=== PATIENT | female | born 1990 | race Caucasian/White ===

== ENCOUNTER 2018-10-24 08:48 | Inpatient (IN) | payer MEDICAID ==
[2018-10-24 09:39] VITALS: BMI 31.7
[2018-10-24] MEDS: Lactated Ringer's 1,000 ML IV ONE ×2 (10:15→11:15)
[2018-10-24 10:58] LABS: BASO % 0.5 % (0.0-2.0); EOS # 0.1 K/uL (0.0-0.7); EOS % 1.8 % (0.0-4.0); HEMOGLOBIN 11.5 g/dL (12.0-16.0); LYMPH # 2.1 K/uL (1.0-4.3); LYMPH % 27.2 % (20.0-40.0); MEAN CELL VOLUME 90.1 fl (81.0-99.0); MEAN CORPUSCULAR HEMOGLOBIN 29.2 pg (27.0-31.0); MEAN CORPUSCULAR HGB CONC 32.4 g/dL (33.0-37.0); MEAN PLATELET VOLUME 12.1 fl (7.2-11.7); MONO # 0.5 K/uL (0.0-0.8); MONO % 6.8 % (0.0-10.0); NEUT # 4.8 K/uL (1.8-7.0); NEUT % 63.7 % (50.0-75.0); NRBC % 0.3 % (0.0-0.0); RBC 3.92 Mil/uL (3.80-5.20); WHITE BLOOD COUNT 7.6 K/uL (4.8-10.8)
[2018-10-24 11:09] VITALS: O2SAT 100
[2018-10-24] MEDS ORDERED: Bupivacaine HCl 0.5% PF (30 ml) Inj ONE (11:36)
[2018-10-24] MEDS ORDERED: Fentanyl/Bupivacaine HCl 250 ML EPI ONE (12:04)
[2018-10-24] MEDS ORDERED: Lactated Ringer's 1,000 ML IV ONE ×2 (12:50→12:51)
--- NOTE | 2018-10-24 13:15 | OBADHP ---
Datetime: 10/24/2018 09:44 Admit Comment, IP Provider: 28 y/o @ 39.6 wks w/REYES of 10/25/2018 LMP: 01/18/2018 is present ing with complaints of contraction that began at 5am this morning and has been occurring every 15 min utes. She reports some mucus-like discharge, + FM, but denies any vb or srom. Denied f/c/n/v/dysuria, chest pain or shortness of breath. OBGYNhx: x 2; 1 5 years ago, 40wks PMH: iron deficiency anemia Meds: Ferrous sulfate 325mg BID, pnv Allergies: denies Surghx: denies Sochx: denies etOH, cigarette or elicit drug use Famhx: maternal grandfather- lung cancer maternal grandmother- gastric tumor maternal aunt-breast cancer ROS: all points reviewed and neg unless otherwise mentioned in HPI VS: 110/65, spo2-99%, P-88bpm, RR-16 Cardiac: s1 s2 no murmurs Lungs: cta b/l Abd: gravid, soft, nontender, no rigidity or guaring Pelvic: 2-3cm, 50%, -2 Ext: calves nontender A/P:28 y/o @ 39.6 wks w/REYES of 10/25/2018 c/o of contractions since 5am today. -Admit to unit for continued FHR monitoring. -Initiate labor protocol. Patient seen and evaluated with Dr. Gisella Delaney, PGY-1, FM Addendum: I saw and examined patient at presentation. Plan to admit patient for early labor. FHT category I. Pt requesting epidural, will contact anesthesia. Discussed plan with patient and all patient que stions answered. Gisella Gestation - Est Wks by US: 39.6 IP Hx Assessment: The History has been Reviewed and is Current Vital Signs Provider: Reviewed; Within Normal Limits IP Chief Complaint: Uterine contractions EGA AdmitDate IP: 39.6 IP Adm Impression: Term, intrauterine IP Admit Plan: Admit to unit; Initiate labor protocol; Observation/Evaluation
[2018-10-24] MEDS ORDERED: Oxytocin 30 UNIT 30 UNITS/500 ML BAG IV ONE ×2 (15:08)
[2018-10-24] MEDS ORDERED: OXYTOCIN/0.9 % NS 20 UNIT/1,000 ML BAG IV ONE (15:08)
[2018-10-24] MEDS ORDERED: Lidocaine 1% Inj (20ml) ONE (20:32)
[2018-10-24] MEDS ORDERED: Benzocaine/Menthol SPRAY TOP PRN ×2 (22:11→22:15)
[2018-10-24] MEDS ORDERED: Oxycodone/Acetaminophen 5/325 mg Tab PO PRN ×2 (22:11→22:15)
--- NOTE | 2018-10-24 23:53 | OBPN ---
Datetime: 10/24/2018 15:06 IP Procedures: Sterile Vag Exam IP Progress Plan: Augmentation Contraction Comments Provider: q3-5min FHR - Baseline A Provider: 120s-130s IP Progress Note Comment: Pt comfortable s/p epidural. No cervical change, plan to start pitocin augmentation. FHT category I Discussed plan with patient and all patient questions answered. Vital Signs Provider: Reviewed; Within Normal Limits NICHD Accel Fetus A IP Provider: [id number] FHR Category Provider Fetus A: Category I NICHD Variability Prov Fetus A: Moderate 6-25bpm Dilatation, Provider: 3 Effacement, Provider: 50 Station, Provider: -2 NICHD Decel Fetus A IP Provider: None Datetime: 10/24/2018 09:44 Gestation - Est Wks by US: 39.6
--- NOTE | 2018-10-24 23:58 | OBDS ---
DELIVERY PERSONNEL Delivery Doctor: Vera Obando MD Supervisor Electronics Testing: Mary Ordoñez RN Anesthetist: Nyla MATERNAL INFORMATION Delivery Anesthesia: Local; Epidural Medications in Delivery: Pitocin Estimated Blood Loss (ml): 200 Placenta Cultured: Yes Maternal Complications: None Provider Comments: . Pt delivered viable male with Apgars of 3,5 and 7 at 1 and 5 and 10 minutes respectively. initially with good color and strong cry, but then color and breathing worsened. Pediatrics c alled for evaluation and resuscitation. Placenta delivered spontaneously. Laceration repaired, as above. Uterus firm and appropriately h emostatic. Pt tolerated delivery and repair well. EBL 200cc. LABOR SUMMARY EDC: 10/25/2018 00:00 No. Babies in Womb: 1 Attempted: No Labor Anesthesia: Epidural LABOR INFORMATION Reason for Induction: Not Applicable Onset of Labor: 10/24/2018 05:00 Complete Dilatation: 10/24/2018 20:11 Oxytocin: Augmentation Group B Beta Strep: Negative Antibiotics # of Doses: na Antibiotics Time of Last Dose: na Steroids Given: None Reason Steroids Not Administered: Not Applicable MEMBRANES Membranes Rupture Method: Spontaneous Rupture of Membranes: 10/24/2018 17:45 Length of Rupture (hrs): 2.68 Amniotic Fluid Color: Clear Amniotic Fluid Amount: None Amniotic Fluid Odor: Normal STAGES OF LABOR Stage 1 hrs: 15 Stage 1 min: 11 Stage 2 hrs: 0 Stage 2 min: 15 Stage 3 hrs: 0 Stage 3 min: 3 Total Time in Labor hrs: 15 Total Time in Labor min: 29 VAGINAL DELIVERY Episiotomy: None Laceration Extension: First Degree Laceration Type: Vaginal Laceration Repair: Yes Laceration Repair Note: First degree perineal laceration. Area infiltrated with 1% lidocaine. Lacer ation repaired with 2.0 rapide. Pt tolerated repair well. Initial Vag Sponge Count: 5 Final Vag Sponge Count: 5 Initial Vag Sharps Count: 2 Sponge Count Correct: Yes Sharps Count Correct: Yes Count Comment: coutn correct BABY A INFORMATION Delivery Date/Time: 10/24/2018 20:26 Method of Delivery: Vaginal Born in Route : No : N/A Forceps: N/A Vacuum Extraction: N/A Shoulder Dystocia : No SHOULDER DYSTOCIA BABY A Infant Delivery Date/Time: 10/24/2018 20:26 PRESENTATION/POSITION BABY A Presentation: Cephalic Cephalic Presentation: Vertex PLACENTA INFORMATION BABY A Placenta Delivery Time : 10/24/2018 20:29 Placenta Method of Delivery: Spontaneous Placenta Status: Delivered SCORES BABY A Heart Rate 1 min: Slow, Below 100 bpm Resp Effort 1 min: Slow, Irregular Reflex Irritability 1 min: Grimace Muscle Tone 1 min: Flaccid Color 1 min: Blue/Pale Resuscitation Effort 1 min: Tactile Stimulation; Oxygen; PPV/NCPAP SCORE 1 MIN: 3 Heart Rate 5 min: >100 bpm Resp Effort 5 min: Slow, Irregular Reflex Irritability 5 min: Grimace Muscle Tone 5 min: Flaccid Color 5 min: Body [place], Extremities Blue Resuscitation Effort 5 min: Tactile Stimulation; Oxygen; PPV/NCPAP SCORE 5 MIN: 5 Heart Rate 10 min: >100 bpm Resp Effort 10 min: Slow, Irregular Reflex Irritability 10 min: Cough or Sneeze or Pulls Away Muscle Tone 10 min: Some Flexion of Extremities Color 10 min: Body [place], Extremities Blue Resuscitation Effort 10 min: Tactile Stimulation; Oxygen; PPV/NCPAP SCORE 10 MIN: 7 Heart Rate 15 min: >100 bpm Resp Effort 15 min: Good Cry Reflex Irritability 15 min: Cough or Sneeze or Pulls Away Muscle Tone 15 min: Some Flexion of Extremities Color 15 min: Body [place], Extremities Blue Resuscitation Effort 15 min: Tactile Stimulation; Oxygen SCORE 15 MIN: 8 INFORMATION BABY A Gestational Age at Delivery: 39.6 Gestational Status: Term Outcome : Liveborn Condition : Fair Infant Sex: Male IDENTIFICATION/MEDS BABY A ID Band Number: [id number] ID Band Location: Left Leg; Left Arm WEIGHT/LENGTH BABY A Birthweight (gms): 3980 Weight (lb): 8 Weight (oz): 12 CORD INFORMATION BABY A No. Cord Vessels: 3 Nuchal Cord : N/A Nuchal Cord Other: N/A Cord Blood Taken: Yes Infant Suction: Mouth; Nose; Pharynx ASSESSMENT BABY A Infant Complications: None Physical Findings at Delivery: Within Normal Limits Infant Respirations: Intercostal Retractions; Nasal Flaring Data Operations Leader/ALS Called : Yes Infant Care By: Evangelist/Hong/Levi/Dr Marsh Transferred To: NICU
--- NOTE | 2018-10-25 08:53 | OBPPN ---
Datetime: 10/25/2018 00:47 PP Pain Prov: Within normal limits PP Nausea Prov: Denies PP Flatus Prov: Yes PP BM Prov: No PP Breasts Prov: Normal PP Heart Prov: Normal PP Lungs Prov: Normal PP Abdomen/Uterus Prov: Normal PP Lochia Prov: Normal PP Vulva/Perineum Prov: Normal PP CVA Tenderness Prov: Normal PP Extremities Prov: Normal PP C/S Incision Prov: Not Applicable PP Progress Prov: Not Applicable PP Comments Phys Exam Prov: Abdomen soft/NT/ND Uterus firm below umb No DCT bilaterally PP Impression Prov: Normal progression PP Plan Prov: Continue present management PP Progress Note Prov: Pt comfortable without complaints. Discussed with patient information from neonatologists. Pt reports having discussion with neonato logy as well. All patient questions answered. is in process to be transfered, plan to discha rge patient in morning. Discussed plan with patient and all patient questions answered. Vital Signs Provider PP: Reviewed; Within Normal Limits
--- NOTE | 2018-10-25 08:55 | OBDCSUM ---
Datetime: 10/25/2018 04:30 Discharged to, Provider: Home Follow up at, Provider: 1 week Disch Instr Activity: Normal activity Disch Instr Diet: Regular Discharge Diet restrict Prov: regular Discharge Instructions, Provider: Routine instructions given Discharge Diagnosis, Provider: Term Delivered Discharge Time: 10/25/2018 04:30 Disch Referrals: None Contraception discussed, Prov: Yes Disch Activity Restrictions: No exercising; No lifting; Minimize stair-climbing; No sexual activity; Nothing in vagina - Century, tampons, douche Contraception after Delivery: Undecided
[2018-10-25 11:01] VITALS: BP 113/63; PULSE 72; RESP 20; TEMP 98.6
== END 2018-10-25 04:45 | disposition home or self-care (01) | DRG 373 ==
LOC: H.EROB2 08:48 → H.L&D 10:17 → H.OB/GYN 22:48
PROVIDERS: ADMIT Obstetrics & Gynecology; ATTEND Obstetrics & Gynecology
PROC: 0HQ9XZZ Repair Perineum Skin, External Approach (ICD-10-PCS; principal; 2018-10-24)
PROC: 10E0XZZ Delivery of Products of Conception, External Approach (ICD-10-PCS; 2018-10-24)
PROC: 4A1HXCZ Monitoring of Products of Conception, Cardiac Rate, External Approach (ICD-10-PCS; 2018-10-24)
DX: O70.0 First degree perineal laceration during delivery (principal); Z37.0 Single live birth; Z3A.39 39 weeks gestation of pregnancy

== ENCOUNTER 2018-10-30 14:10 | Emergency (ER) | payer MEDICAID ==
[2018-10-30 14:11] VITALS: BMI 31.7
--- NOTE | 2018-10-30 15:52 | ED PDOC ---
HPI: General Adult Time Seen by Provider: 10/30/18 15:50 Chief Complaint (Nursing): Wound Check Chief Complaint (Provider): wound check History Per: Patient (28 y/o female 6 days vaginal delivery with repair of First degree perineal tear here for increasing pain in region. Patient denies any vaginal discharge or fever. Patient unable to make appt earlier than 3 weeks and was advised by clinic to come to ED for emergency appointment.) Past Medical History Reviewed: Historical Data, Nursing Documentation, Vital Signs Vital Signs: Last Vital Signs Temp 99.2 F 10/30/18 14:17 Pulse 73 10/30/18 14:17 Resp 18 10/30/18 14:17 BP 122/68 10/30/18 14:17 Pulse Ox 99 10/30/18 14:17 - Medical History PMH: Denies: Depression, Diabetes, HTN, Chronic Kidney Disease - Family History Family History: States: Unknown Family Hx - Immunization History Hx Tetanus Toxoid Vaccination: No Hx Influenza Vaccination: No - Home Medications Home Medications: Ambulatory Orders Medication Instructions Recorded Nitrofurantoin Macrocrystals 1 cap PO BID #14 cap 06/06/18 [Macrobid] Multivit/Folic Acid/I 1 tab PO DAILY 06/06/18 [] - Allergies Allergies/Adverse Reactions: Allergies Allergy/AdvReac Type Severity Reaction Status Date / Time No Known Allergies Allergy Verified 10/30/18 14:25 Review of Systems ROS Statement: Except As Marked, All Systems Reviewed And Found Negative Physical Exam - Reviewed Nursing Documentation Reviewed: Yes Vital Signs Reviewed: Yes - Physical Exam Appears: Positive for: Well, Non-toxic, No Acute Distress Head Exam: Positive for: ATRAUMATIC, NORMAL INSPECTION, NORMOCEPHALIC Skin: Positive for: Normal Color, Warm, DRY Eye Exam: Positive for: EOMI, Normal appearance, PERRL ENT: Positive for: Normal ENT Inspection Neck: Positive for: Normal, Painless ROM Cardiovascular/Chest: Positive for: Regular Rate, Rhythm Respiratory: Positive for: CNT, Normal Breath Sounds Gastrointestinal/Abdominal: Positive for: Normal Exam, Soft Pelvic Exam: Positive for: Other (mild erythema noted by suture line with edema.) Back: Positive for: Normal Inspection Extremity: Positive for: Normal ROM Neurologic/Psych: Positive for: Alert, Oriented - ECG O2 Sat by Pulse Oximetry: 99 - Progress ED Course And Treament: d/w and seen with Dr. Newell. ADvised sabino chance and f/u with strategy director Disposition - Clinical Impression Clinical Impression: Encounter for wound re-check - Patient ED Disposition Is Patient to be Admitted: No - Disposition Disposition: Routine/Home Disposition Time: 16:10 Condition: FAIR Instructions: Wound Care (DC)
[2018-10-30 16:58] VITALS: BP 116/67; PULSE 58; RESP 16; TEMP 98.5; O2SAT 98
== END 2018-10-30 16:59 | disposition home or self-care (01) ==
LOC: H.ER 14:10
DX: G89.18 Other acute postprocedural pain (principal)